=== PATIENT | male | born 1965 | race Caucasian/White ===

== ENCOUNTER 2021-09-23 10:49 | Inpatient (IN) | payer MEDICARE, SELFPAY ==
[2021-09-23] VITALS (27 sets, daily range): BP systolic 120–169; BP diastolic 60–91; PULSE 79–122; RESP 17–30; TEMP 36.1–39.1; O2SAT 88–95; BMI 31.7
--- NOTE | ~2021-09-23 | US_ITS ---
US breast LT limited 09/24/2021 09:47 Indication: Palpable breast lump Procedure: High-resolution Limited ultrasound of the left breast with additional images of the right breast for comparison Comparison: No prior studies for comparison. Findings: There is bilateral subareolar heterogeneous echotexture, consistent with breast buds second monisha to gynecomastia. No suspicious masses to suggest malignancy. Impression: 1: No sonographic evidence for malignancy. Benign findings compatible with gynecomastia. BI-RADS CATEGORY 2 - BENIGN FINDINGS Reviewed, dictated and finalized at location A. LOPE STUFFER Impression: 1: No sonographic evidence for malignancy. Benign findings compatible with gyne comastia. BI-RADS CATEGORY 2 - BENIGN FINDINGS
--- NOTE | ~2021-09-23 | XR_ITS ---
XR chest 1V portable DATE: 09/23/2021 11:48 INDICATION: Low oxygen saturation. Covid-positive. Hypertension. TECHNIQUE: Portable upright AP chest on 09/23/2021 at 1136 hours COMPARISON: None FINDINGS: Normal heart size. Aortic calcification. No hilar or mediastinal enlargement is evident. There is suggestion of some patchy infiltrate in the right upper, mid and lower lung zones and left l ower lobe. No pleural effusion or pulmonary vascular congestion or pneumothorax. Diffuse osteopenia. IMPRESSION: Patchy bilateral pulmonary infiltrates are suggested, right greater than left Reviewed, dictated and finalized at location A. ESSIONAL BUILDER
--- NOTE | 2021-09-23 11:03 | ECG_ITS ---
Measurements Intervals [place] Rate: 117 P: 54 LA: 192 QRS: 7 QRSD: 86 T: 39 QT: 342 QTc: 477 Interpretive Statements SINUS TACHYCARDIA LOW QRS VOLTAGE IN PRECORDIAL LEADS BASELINE ARTIFACT- I, II, III, AVR, AVL, AVF, V1-V6 ABNORMAL ECG Electronically Signed On 09-23-2021 11:42:41 HAM PASSER by Gus Robledo D.O.
[2021-09-23 11:29] LABS: Basophils Percent Auto 0.2 % (0.2-1.2); Hematocrit 37.7 % (42.0-52.0); Immature Granulocyte Absolute 0.05 K/mm3 (0.00-0.031); Immature Granulocyte Percent A 0.9 % (0-0.5); Lymphocytes Absolute Auto 1.05 K/mm3 (0.9-3.2); Lymphocytes Percent Auto 18.5 % (18.3-44.2); Mean Corpuscular HGB Conc 34.5 g/dl (32-36); Mean Corpuscular Hemoglobin 29.1 pg (26-34); Mean Corpuscular Volume 84.3 fl (80-100); Mean Platelet Volume 10.7 fl (7.4-10.4); Monocytes Absolute Auto 0.4 K/mm3 (0.1-0.6); Monocytes Percent Auto 6.9 % (2.6-8.5); Neutrophils Absolute Auto 4.2 K/mm3 (1.3-6.7); Neutrophils Percent Auto 73.5 % (45.5-73.1); Platelet Count Result 260 k/mm3 (150-375); Red Blood Count 4.47 M/mm3 (4.6-6.20); Red Cell Distribution Width 13.5 % (11.5-14.5); White Blood Count 5.7 K/mm3 (4.5-10.0)
--- NOTE | 2021-09-23 11:29 | ED.GENADULT ---
HPI - General Adult General Chief complaint: Upper Respiratory Infection Stated complaint: sob/covid positive Time Seen by Provider: 09/23/21 11:10 Source: patient History of Present Illness HPI narrative: Patient is a 56 y/o male complaining of SOB and cough for about 1 week. He states that his SOB is severe and getting worse during last several days. Exertion, walking makes his SOB worse. He also has fever, sore throat and bodyache and headache. He did home COVID last week and it was positive. He has not been vaccinated against COVID. Related Data Home Medications Medication Instructions Recorded Confirmed buspirone 15 mg tablet 15 mg PO DAILY 04/26/20 09/23/21 citalopram 40 mg tablet 40 mg PO DAILY 04/26/20 09/23/21 cetirizine 10 mg capsule 10 mg PO DAILY 12/17/20 09/23/21 esomeprazole magnesium 20 mg 20 mg PO DAILY 12/17/20 09/23/21 capsule,delayed release multivitamin 1 tablet PO DAILY 12/17/20 09/23/21 trazodone 100 mg tablet 150 mg PO HS tablet 12/17/20 09/23/21 vitamin B complex 1 cap PO DAILY 12/17/20 09/23/21 risperidone 1 mg tablet 1 mg PO DAILY tablet 09/09/21 09/23/21 buspirone 30 mg PO HS 09/23/21 09/23/21 iukgtwj-[id number]-ijko 1 tablet PO DAILY 09/23/21 09/23/21 hydroxyzine pamoate 50 mg PO DAILY 09/23/21 09/23/21 hydroxyzine pamoate 100 mg PO HS 09/23/21 09/23/21 metoprolol succinate 25 mg PO DAILY 09/23/21 09/23/21 risperidone 2 mg PO HS 09/23/21 09/23/21 Allergies Allergy/AdvReac Type Severity Reaction Status Date / Time No Known Allergies Allergy Mild Verified 09/09/21 09:54 Review of Systems Constitutional: Constitutional: Reports chills, Reports fever(s), Reports headache(s) and Denies weakness Eyes: Eyes: Denies blurry vision ENT: Reports headache(s), Denies neck pain and Reports sore throat Cardiovascular: Cardiovascular: Denies chest pain and Reports dyspnea Respiratory: Respiratory: Reports cough and Reports dyspnea Gastrointestinal: Gastrointestinal: Denies abdominal pain, Denies diarrhea, Denies nausea and Denies vomiting Genitourinary: Genitourinary: Denies hematuria and Denies dysuria Musculoskeletal: Musculoskeletal: Denies back pain and Denies neck pain Neurologic: Reports headache(s) and Denies weakness PMFSH Past Medical History Medical History Foot injury Hyperlipidemia Hypertension Mood disorder Type 2 diabetes mellitus Surgical History Surgical History No history of previous surgery Family History Family History (Updated 09/23/21 @ 17:09 by Rukhsana Lovelace RN) Mother Family history of malignant neoplasm of breast in first degree relative Thyroid cancer Osteoarthritis Rheumatoid arthritis Father AIDS Social History Social History (Updated 09/23/21 @ 14:44 by Angie Kaur NP) Social History: The patient has 3 children. He lives with his who is the durable power prosecuting attorney for healthcare. He is considered disabled. Patient continues to smoke 1 pack a cigarettes per day. He continues to drink socially. He denies any marijuana or illicit drugs. Code status full code Smoking packs per day: 1 Smoking cigarettes per day: 20.0 Years smoked: 40 Smoking pack-years: 40.00 Smoking status: Heavy tobacco smoker Tobacco type: cigarettes Alcohol intake: current Drinks per week: 3 Substance use: never Substance use type: does not use Additional occupation/education comments: [employer]. Gender identity (if verbalized by the patient): Male Sexual Orientation (if Verbalized by the Patient): Straight or Heterosexual Spiritual care concerns: No Agree to blood products: Yes Exam Const: General: no acute distress and well developed Orientation/consciousness: oriented to person, oriented to place, oriented to time and patient oriented x3 HENMT: Head: normocephalic Ears: external ears normal General nos
[2021-09-23 11:30] LABS: Alveolar/Arterial O2 Gradient 88.8 mmHg; Base Excess ABG -1.9 mEq/l (+/-2.0); Fractional Inspired Oxygen 25 %; HCO3 ABG 19.9 mEq/l (22.0-26.0); Methemoglobin ABG 0.3 %THb (0-1.5); Oxygen Content ABG 16.6 %vol (16.0-22.0); Oxygen Saturation ABG 92.8 % (95.0-100.0); Oxyhemoglobin 89.7 % THb (90.0-100.0); PCO2 ABG 26.4 mmHg (35.0-45.0); PO2 ABG 58.1 mmHg (80.0-100.0); PO2 FiO2 Ratio Arterial Blood 2.32 %; Total Hemoglobin 13.2 g/dL (12.0-18.0); pH ABG 7.496 (7.350-7.450)
[2021-09-23 11:31] LABS: Device NASAL CANNULA; Liters per Minute 1.3 LPM; Site Drawn LEFT BRACHIAL
[2021-09-23 11:38] LABS: INR 0.9; Prothrombin Time 11.9 Seconds (11.1-14.7)
[2021-09-23 11:39] LABS: Partial Thromboplastin Time 30.6 SECONDS (22.3-36.8)
[2021-09-23 11:43] LABS: Lactic Acid Reflex 1.9 mmol/L (0.7-2.1)
[2021-09-23 11:57] LABS: Alanine Aminotransferase 42 U/L (4-50); Albumin Level 4.4 g/dL (3.5-5.1); Alkaline Phosphatase 158 U/L (38-126); Anion Gap 16 mmol/L (8-16); Aspartate Amino Transferase 77 U/L (17-59); Bilirubin,Total 0.4 mg/dL (0.2-1.3); Blood Urea Nitrogen 21 mg/dL (9-20); Calcium 9.6 mg/dL (8.4-10.2); Carbon Dioxide 20 mmol/L (22-30); Chloride 100 mmol/L (98-107); Estimated CRCL calculation 81 ml/min; Estimated Glomerular Filt Rate > 60; Glucose 191 mg/dL (65-110); Potassium 3.9 mmol/L (3.4-5.0); Sodium 136 mmol/L (137-145)
[2021-09-23 11:59] LABS: CRP 19.9 mg/dL (<1.0)
--- NOTE | 2021-09-23 12:47 | PC.NURSE ---
1247-CALLED TO PHARMACY REGARDING STATUS OF MEDICATION. PHARMACY STATES STILL MIXING AND WILL HAVE AVAILABLE SHORTLY.
[2021-09-23] MEDS: REMDESIVIR 200 MG/NS 250 ML 200 MG/250 ML BAG 250 MG IVPB (13:08)
--- NOTE | 2021-09-23 13:50 | PM.IMHP ---
H&P: HPI History of Present Illness Date/Time: 09/23/21 13:50 this is an 56-year-old male patient who is unvaccinated for COVID-19. The patient has been complaining about having a occasional cough for about 1 week. The patient stated that his shortness breath is more superior and has been getting worse during the last several days. Exertion makes him feel more short of breath. The patient has had fever, sore throat, body aches, and headache. He tested positive for COVID approximately 1 week ago. His is also sick as well and she has been vaccinated. His H&H is 13.0 in 37.7. His blood sugars 191 today last A1c on 03/28/2021 was 7.1. AST 77, alkaline phosphatase 158, and C reactive protein 19.9. Chest x-ray was read as patchy bilateral pulmonary infiltrates are suggested right greater than left. The patient was given IV Tylenol, Decadron, and remdesivir. The patient is being admitted to inpatient services on the date of service 09/23/2021. Chief Complaint: Shortness of breath Review of Systems Review of Systems: All systems reviewed & are unremarkable except as noted in HPI and below Constitutional: Constitutional: Reports as per HPI and Reports no additional constitutional complaints Eyes: Eyes: Reports as per HPI and Reports no additional eye complaints ENT: Reports system reviewed and no additional complaints, except as documented and Reports Normal hearing present Cardiovascular: Cardiovascular: Reports no additional cardiovascular complaints Respiratory: Respiratory: Reports no additional respiratory complaints and Reports no additional respiratory complaints Gastrointestinal: Gastrointestinal: Reports as per HPI and Reports no additional gastrointestinal complaints Musculoskeletal: Musculoskeletal: Reports no additional musculoskeletal complaints Integumentary/Breasts: Skin/Breast: Reports system reviewed and no additional complaints, except as docu and Reports as per HPI Neurologic: Reports system reviewed and no additional complaints, except as documented, Reports as per HPI and Reports Normal hearing present Psychiatric: Psychiatric: Reports no additional psychiatric complaints and Reports as per HPI Endocrine: Endocrine: Reports no additional endocrine complaints Hematologic/Lymphatic: Hematologic/Lymphatic: Reports no additional hematologic/lymphatic complaints Allergic/Immunologic: Allergic/Immunologic: Reports no additional allergic/immunologic complaints PMFSH Past Medical History Medical History Foot injury Hyperlipidemia Hypertension Mood disorder Type 2 diabetes mellitus Surgical History Surgical History No history of previous surgery Family History Family History Mother Family history of malignant neoplasm of breast in first degree relative Father AIDS Social History Social History (Updated 09/23/21 @ 14:44 by Angie Kaur NP) Social History: The patient has 3 children. He lives with his who is the durable power erisa attorney for healthcare. He is considered disabled. Patient continues to smoke 1 pack a cigarettes per day. He continues to drink socially. He denies any marijuana or illicit drugs. Code status full code Smoking packs per day: 1 Smoking cigarettes per day: 20.0 Smoking status: Current every day smoker Alcohol intake: current Substance use: never Substance use type: does not use Additional occupation/education comments: [employer]. Gender identity (if verbalized by the patient): Male Sexual Orientation (if Verbalized by the Patient): Straight or Heterosexual Spiritual care concerns: No Agree to blood products: Yes Meds Home Medications and Allergies Home Medications Medication Instructions Recorded Confirmed Type buspirone 15 mg tablet 15 mg PO BID 04/26/20 09/09/21
--- NOTE | 2021-09-23 15:35 | PC.NURSE ---
This patient, Shai Hernandez, was admitted to [facility] Surg Room 328-01. Patient/family oriented to hospital policies and general routines including ID bracelet, bed and alarms, visiting hours, pain management, procedures, bathroom and other care routines, personal items, smoking policy, room service/diet, and visiting hours.Report received from Roe LAINEZ. Information on how to activate the Rapid Response Team has been discussed. Patient/Family are encouraged to report perceived risks to care and to ask questions if they do not understand what they are told or what they should do.
[2021-09-23 22:56] LABS: Glucose Point of Care 272 mg/dl (65-105)
[2021-09-24] VITALS (10 sets, daily range): BP systolic 127–144; BP diastolic 62–78; PULSE 69–85; RESP 14–20; TEMP 36.1–37.1; O2SAT 90–95; BMI 31.7
[2021-09-24 05:38] LABS: Glucose Point of Care 250 mg/dl (65-105)
[2021-09-24 07:31] LABS: Basophils Percent Auto 0.2 % (0.2-1.2); Hematocrit 38.3 % (42.0-52.0); Hemoglobin 12.7 g/dL (14.0-18.0); Immature Granulocyte Absolute 0.05 K/mm3 (0.00-0.031); Immature Granulocyte Percent A 1.1 % (0-0.5); Lymphocytes Absolute Auto 1.37 K/mm3 (0.9-3.2); Lymphocytes Percent Auto 31.5 % (18.3-44.2); Mean Corpuscular HGB Conc 33.2 g/dl (32-36); Mean Corpuscular Hemoglobin 28.4 pg (26-34); Mean Corpuscular Volume 85.7 fl (80-100); Mean Platelet Volume 10.8 fl (7.4-10.4); Monocytes Absolute Auto 0.4 K/mm3 (0.1-0.6); Monocytes Percent Auto 8.3 % (2.6-8.5); Neutrophils Absolute Auto 2.6 K/mm3 (1.3-6.7); Neutrophils Percent Auto 58.9 % (45.5-73.1); Platelet Count Result 304 k/mm3 (150-375); Red Blood Count 4.47 M/mm3 (4.6-6.20); Red Cell Distribution Width 13.6 % (11.5-14.5); White Blood Count 4.4 K/mm3 (4.5-10.0)
[2021-09-24 07:41] LABS: Prothrombin Time 13.1 Seconds (11.1-14.7)
[2021-09-24 07:55] LABS: Alanine Aminotransferase 48 U/L (4-50); Albumin Level 4.4 g/dL (3.5-5.1); Alkaline Phosphatase 136 U/L (38-126); Anion Gap 11 mmol/L (8-16); Aspartate Amino Transferase 66 U/L (17-59); Bilirubin,Total 0.4 mg/dL (0.2-1.3); Blood Urea Nitrogen 23 mg/dL (9-20); Carbon Dioxide 25 mmol/L (22-30); Chloride 103 mmol/L (98-107); Estimated CRCL calculation 96 ml/min; Estimated Glomerular Filt Rate > 60; Glucose 180 mg/dL (65-110); Lactate Dehydrogenase 1101 U/L (313-618); Magnesium 1.5 mg/dL (1.6-2.3); Potassium 4.4 mmol/L (3.4-5.0); Sodium 139 mmol/L (137-145)
[2021-09-24 08:12] LABS: CRP 18.6 mg/dL (<1.0); Hemoglobin A1C 7.5 % (<5.7)
[2021-09-24] MEDS: NICOTINE (*PBKC) 21 MG PATCH 1 PATCH TRANSDERM (08:36)
[2021-09-24] MEDS: ENOXAPARIN 40 MG/0.4 ML SYRINGE SUB-Q (08:37)
[2021-09-24] MEDS: REMDESIVIR 100 MG/NS 250 ML 100 MG/250 ML BAG 250 MG IVPB (10:21)
[2021-09-24 11:02] LABS: Glucose Point of Care 171 mg/dl (65-105)
[2021-09-24] MEDS: GLIMEPIRIDE 1 MG TABLET PO (12:12)
[2021-09-24] MEDS: busPIRone HCL 5 MG TABLET 15 MG PO (12:12)
[2021-09-24] MEDS: METOPROLOL SUCCINATE EXT REL 50 MG TABCR PO (12:12)
[2021-09-24] MEDS: CITALOPRAM HYDROBROMIDE 20 MG TABLET 40 MG PO (12:12)
[2021-09-24] MEDS: LORATADINE 10 MG TABLET PO (12:12)
[2021-09-24] MEDS: hydroCHLOROthiazide 25 MG TABLET PO (12:13)
[2021-09-24] MEDS: METOPROLOL SUCCINATE EXT REL 25 MG TABCR PO (12:13)
[2021-09-24] MEDS: hydrOXYzine pamoate 25 MG CAPSULE 50 MG PO (12:13)
[2021-09-24] MEDS: PANTOPRAZOLE 40 MG TABLET PO (12:13)
[2021-09-24] MEDS: VITAMIN B COMPLEX CAPSULE 1 CAP PO (12:13)
[2021-09-24] MEDS: LOSARTAN POTASSIUM 100 MG TABLET PO (12:13)
[2021-09-24] MEDS: ATORVASTATIN 40 MG TABLET PO (12:13)
[2021-09-24] MEDS: risperiDONE 1 MG TABLET PO (12:14)
[2021-09-24] MEDS: MULTIVITAMINS THERAPEUTIC TAB (*BKC) 1 TABLET PO (12:14)
[2021-09-24] MEDS: INSULIN ASPART (*BKC) 100 UNITS/ML SUB-Q ×2 (12:59→18:04)
[2021-09-24 13:13] LABS: Glucose Point of Care 248 mg/dl (65-105)
[2021-09-24 18:28] LABS: Glucose Point of Care 234 mg/dl (65-105)
--- NOTE | 2021-09-24 18:47 | PM.IMPN ---
Progress Note: A&P Assessment and Plan (1) Pneumonia due to COVID-19 virus: Code(s): U07.1 - COVID-19; J12.82 - Pneumonia due to coronavirus disease 2019 Status: Acute Assessment and Plan: Continue with albuterol inhaler p.r.n. continue with remdesivir and Decadron daily continue subcu Lovenox. Continue with Robitussin cough medicine. Home oxygen evaluation to more. (2) Primary hypertension: Code(s): I10 - Essential (primary) hypertension Status: Acute Assessment and Plan: P.r.n. hydralazine and continue with his home medications of losartan, hydrochlorothiazide and metoprolol. (3) Type 2 diabetes mellitus: Qualifiers: Diabetes mellitus extermination supervisor insulin use: without senior care use Diabetes mellitus complication status: without complication Qualified Code(s): E11.9 - Type 2 diabetes mellitus without complications Code(s): E11.9 - Type 2 diabetes mellitus without complications Status: Acute Assessment and Plan: Continue Accu-Cheks AC and HS with sliding scale. Check A1c. (4) Hyperlipidemia: Qualifiers: Hyperlipidemia type: mixed hyperlipidemia Qualified Code(s): E78.2 - Mixed hyperlipidemia Code(s): E78.5 - Hyperlipidemia, unspecified Status: Acute Assessment and Plan: Monitor liver function tests. Patient's liver enzymes are elevated so I will hold his atorvastatin at this time. The elevated liver enzymes may be from his COVID. (5) Mood disorder: Code(s): F39 - Unspecified mood [affective] disorder Status: Acute Assessment and Plan: Continue with patient's BuSpar and trazodone Subjective Date/time seen: 09/24/21 18:47 Narrative: this is an 56-year-old male unvaccinated patient admitted with cough, worsening shortness breath, fever, sore throat, body aches, and headache. He tested positive for COVID approximately 1 week ago. Chest x-ray was read as patchy bilateral pulmonary infiltrates are suggested right greater than left. The patient was given IV Tylenol, Decadron, and remdesivir. S: Patient was seen and examined at the bedside. He had a good dinner. He denies any complaints. Review of Systems Review of Systems: All systems reviewed & are unremarkable except as noted in HPI and below Constitutional: Constitutional: Reports as per HPI and Reports no additional constitutional complaints Eyes: Eyes: Reports as per HPI and Reports no additional eye complaints ENT: Reports system reviewed and no additional complaints, except as documented and Reports Normal hearing present Cardiovascular: Cardiovascular: Reports no additional cardiovascular complaints Respiratory: Respiratory: Reports no additional respiratory complaints and Reports no additional respiratory complaints Gastrointestinal: Gastrointestinal: Reports as per HPI and Reports no additional gastrointestinal complaints Musculoskeletal: Musculoskeletal: Reports no additional musculoskeletal complaints Integumentary/Breasts: Skin/Breast: Reports system reviewed and no additional complaints, except as docu and Reports as per HPI Neurologic: Reports system reviewed and no additional complaints, except as documented, Reports as per HPI and Reports Normal hearing present Psychiatric: Psychiatric: Reports no additional psychiatric complaints and Reports as per HPI Endocrine: Endocrine: Reports no additional endocrine complaints Hematologic/Lymphatic: Hematologic/Lymphatic: Reports no additional hematologic/lymphatic complaints Allergic/Immunologic: Allergic/Immunologic: Reports no additional allergic/immunologic complaints Exam Const: General: cooperative, comfortable, no acute distress, well developed, alert, awake and Physically active Nutritional Appearance: overweight Orientation/consciousness: oriented to person, oriented to place, oriented to time and patient oriented x3 Limitations: no limitations HENMT: Head: normal to inspection, N
[2021-09-24] MEDS: hydrOXYzine pamoate 25 MG CAPSULE 100 MG PO (21:24)
[2021-09-24] MEDS: busPIRone HCL 10 MG TABLET 30 MG PO (21:24)
[2021-09-24] MEDS: risperiDONE 1 MG TABLET 2 MG PO (21:25)
[2021-09-24] MEDS: traZODone HCL 50 MG TABLET 150 MG PO (21:25)
[2021-09-24] MEDS: INSULIN GLARGINE (*BKC) 100 UNITS/ML 15 UNITS SUB-Q (21:30)
[2021-09-24 22:31] LABS: Glucose Point of Care 280 mg/dl (65-105)
[2021-09-25] VITALS (7 sets, daily range): BP systolic 102–142; BP diastolic 43–82; PULSE 62–84; RESP 15–22; TEMP 36–37.9; O2SAT 89–93
[2021-09-25 07:15] LABS: Hematocrit 38.1 % (42.0-52.0); Hemoglobin 12.6 g/dL (14.0-18.0); Mean Corpuscular HGB Conc 33.1 g/dl (32-36); Mean Corpuscular Hemoglobin 28.6 pg (26-34); Mean Corpuscular Volume 86.4 fl (80-100); Mean Platelet Volume 10.6 fl (7.4-10.4); Platelet Count Result 337 k/mm3 (150-375); Red Blood Count 4.41 M/mm3 (4.6-6.20); Red Cell Distribution Width 13.6 % (11.5-14.5); White Blood Count 7.6 K/mm3 (4.5-10.0)
[2021-09-25 07:28] LABS: Prothrombin Time 12.8 Seconds (11.1-14.7)
[2021-09-25 07:31] LABS: Alanine Aminotransferase 61 U/L (4-50); Alkaline Phosphatase 123 U/L (38-126); Anion Gap 12 mmol/L (8-16); Aspartate Amino Transferase 90 U/L (17-59); Bilirubin,Total 0.4 mg/dL (0.2-1.3); Blood Urea Nitrogen 30 mg/dL (9-20); Calcium 9.6 mg/dL (8.4-10.2); Carbon Dioxide 24 mmol/L (22-30); Chloride 103 mmol/L (98-107); Estimated CRCL calculation 87 ml/min; Estimated Glomerular Filt Rate > 60; Glucose 155 mg/dL (65-110); Potassium 4.2 mmol/L (3.4-5.0); Sodium 139 mmol/L (137-145)
[2021-09-25] MEDS: ENOXAPARIN 40 MG/0.4 ML SYRINGE SUB-Q (10:10)
[2021-09-25] MEDS: busPIRone HCL 5 MG TABLET 15 MG PO (10:10)
[2021-09-25] MEDS: VITAMIN B COMPLEX CAPSULE 1 CAP PO (10:11)
[2021-09-25] MEDS: PANTOPRAZOLE 40 MG TABLET PO (10:11)
[2021-09-25] MEDS: ATORVASTATIN 40 MG TABLET PO (10:11)
[2021-09-25] MEDS: risperiDONE 1 MG TABLET PO (10:11)
[2021-09-25] MEDS: METOPROLOL SUCCINATE EXT REL 25 MG TABCR PO (10:11)
[2021-09-25] MEDS: MULTIVITAMINS THERAPEUTIC TAB (*BKC) 1 TABLET PO (10:11)
[2021-09-25] MEDS: hydrOXYzine pamoate 25 MG CAPSULE 50 MG PO (10:11)
[2021-09-25] MEDS: METOPROLOL SUCCINATE EXT REL 50 MG TABCR PO (10:11)
[2021-09-25] MEDS: GLIMEPIRIDE 1 MG TABLET PO (10:12)
[2021-09-25] MEDS: CITALOPRAM HYDROBROMIDE 20 MG TABLET 40 MG PO (10:12)
[2021-09-25] MEDS: LORATADINE 10 MG TABLET PO (10:12)
[2021-09-25] MEDS: LOSARTAN POTASSIUM 100 MG TABLET PO (10:12)
[2021-09-25] MEDS: hydroCHLOROthiazide 25 MG TABLET PO (10:12)
[2021-09-25] MEDS: NICOTINE (*PBKC) 21 MG PATCH 1 PATCH TRANSDERM (10:13)
[2021-09-25] MEDS: REMDESIVIR 100 MG/NS 250 ML 100 MG/250 ML BAG IVPB (10:13)
[2021-09-25 12:23] LABS: Glucose Point of Care 220 mg/dl (65-105)
[2021-09-25] MEDS: INSULIN ASPART (*BKC) 100 UNITS/ML SUB-Q (13:00)
--- NOTE | 2021-09-25 13:25 | PM.IMPN ---
Progress Note: A&P Assessment and Plan (1) Pneumonia due to COVID-19 virus: Code(s): U07.1 - COVID-19; J12.82 - Pneumonia due to coronavirus disease 2019 Status: Acute Assessment and Plan: Continue with albuterol inhaler p.r.n. continue management for COVID-19 pneumonia with remdesivir and Decadron daily continue subcu Lovenox. Continue with Robitussin cough medicine. Home oxygen evaluation today. Currently patient requiring only 1 L oxygen via nasal cannula. Clinically he is stable. (2) Primary hypertension: Code(s): I10 - Essential (primary) hypertension Status: Acute Assessment and Plan: Continue with his home medications of losartan, hydrochlorothiazide and metoprolol. Hold for systolic blood pressure less than 130 in the setting of acute illness. (3) Type 2 diabetes mellitus: Qualifiers: Diabetes mellitus jail insulin use: without jail use Diabetes mellitus complication status: without complication Qualified Code(s): E11.9 - Type 2 diabetes mellitus without complications Code(s): E11.9 - Type 2 diabetes mellitus without complications Status: Acute Assessment and Plan: Continue Accu-Cheks AC and HS with sliding scale. A1c is 7.5, close to goal. Fasting blood glucose was 155. Accu-Chek was 220. (4) Hyperlipidemia: Qualifiers: Hyperlipidemia type: mixed hyperlipidemia Qualified Code(s): E78.2 - Mixed hyperlipidemia Code(s): E78.5 - Hyperlipidemia, unspecified Status: Acute Assessment and Plan: Monitor liver function tests. Patient's liver enzymes are elevated on admission. This is a mild elevation of LFTs with normal total bilirubin at 0.4, AST 90, ALT 61, and normal alkaline phosphatase at 123. (5) Mood disorder: Code(s): F39 - Unspecified mood [affective] disorder Status: Acute Assessment and Plan: Continue with patient's BuSpar and trazodone. Subjective Date/time seen: 09/25/21 13:25 S: Patient was seen examined at the bedside. Denies any active complaints. He is breathing comfortably oxygen on 1 L nasal cannula. Review of Systems Review of Systems: All systems reviewed & are unremarkable except as noted in HPI and below Constitutional: Constitutional: Reports as per HPI and Reports no additional constitutional complaints Eyes: Eyes: Reports as per HPI and Reports no additional eye complaints ENT: Reports system reviewed and no additional complaints, except as documented and Reports Normal hearing present Cardiovascular: Cardiovascular: Reports no additional cardiovascular complaints Respiratory: Respiratory: Reports no additional respiratory complaints and Reports no additional respiratory complaints Gastrointestinal: Gastrointestinal: Reports as per HPI and Reports no additional gastrointestinal complaints Musculoskeletal: Musculoskeletal: Reports no additional musculoskeletal complaints Integumentary/Breasts: Skin/Breast: Reports system reviewed and no additional complaints, except as docu and Reports as per HPI Neurologic: Reports system reviewed and no additional complaints, except as documented, Reports as per HPI and Reports Normal hearing present Psychiatric: Psychiatric: Reports no additional psychiatric complaints and Reports as per HPI Endocrine: Endocrine: Reports no additional endocrine complaints Hematologic/Lymphatic: Hematologic/Lymphatic: Reports no additional hematologic/lymphatic complaints Allergic/Immunologic: Allergic/Immunologic: Reports no additional allergic/immunologic complaints Exam Const: General: cooperative, comfortable, no acute distress, well developed, alert, awake and Physically active Nutritional Appearance: overweight Orientation/consciousness: oriented to person, oriented to place, oriented to time and patient oriented x3 Limitations: no limitations HENMT: Head: normal to inspection, No palpable skull fracture present, normocephali
[2021-09-25 17:04] LABS: Glucose Point of Care 125 mg/dl (65-105)
[2021-09-25] MEDS: traZODone HCL 50 MG TABLET 150 MG PO (21:46)
[2021-09-25] MEDS: risperiDONE 1 MG TABLET 2 MG PO (21:46)
[2021-09-25] MEDS: hydrOXYzine pamoate 25 MG CAPSULE 100 MG PO (21:47)
[2021-09-25] MEDS: busPIRone HCL 10 MG TABLET 30 MG PO (21:47)
[2021-09-25 22:01] LABS: Glucose Point of Care 144 mg/dl (65-105)
[2021-09-26] VITALS (14 sets, daily range): BP systolic 110–138; BP diastolic 52–64; PULSE 72–109; RESP 16–20; TEMP 36.4–38.6; O2SAT 87–91
[2021-09-26] MEDS: ACETAMINOPHEN 500 MG TABLET 1000 MG PO ×2 (00:05)
[2021-09-26 07:35] LABS: Prothrombin Time 12.8 Seconds (11.1-14.7)
[2021-09-26 07:45] LABS: Alanine Aminotransferase 69 U/L (4-50); Estimated CRCL calculation 79 ml/min; Estimated Glomerular Filt Rate > 60
[2021-09-26] MEDS: hydrOXYzine pamoate 25 MG CAPSULE 50 MG PO (10:34)
[2021-09-26] MEDS: LORATADINE 10 MG TABLET PO (10:34)
[2021-09-26] MEDS: busPIRone HCL 5 MG TABLET 15 MG PO (10:34)
[2021-09-26] MEDS: ATORVASTATIN 40 MG TABLET PO (10:34)
[2021-09-26] MEDS: PANTOPRAZOLE 40 MG TABLET PO (10:35)
[2021-09-26] MEDS: VITAMIN B COMPLEX CAPSULE 1 CAP PO (10:35)
[2021-09-26] MEDS: LOSARTAN POTASSIUM 100 MG TABLET PO (10:35)
[2021-09-26] MEDS: risperiDONE 1 MG TABLET PO (10:35)
[2021-09-26] MEDS: hydroCHLOROthiazide 25 MG TABLET PO (10:35)
[2021-09-26] MEDS: MULTIVITAMINS THERAPEUTIC TAB (*BKC) 1 TABLET PO (10:35)
[2021-09-26] MEDS: GLIMEPIRIDE 1 MG TABLET PO (10:35)
[2021-09-26] MEDS: METOPROLOL SUCCINATE EXT REL 25 MG TABCR PO (10:36)
[2021-09-26] MEDS: CITALOPRAM HYDROBROMIDE 20 MG TABLET 40 MG PO (10:37)
[2021-09-26] MEDS: NICOTINE (*PBKC) 21 MG PATCH 1 PATCH TRANSDERM (10:38)
[2021-09-26] MEDS: METOPROLOL SUCCINATE EXT REL 50 MG TABCR PO (10:38)
--- NOTE | 2021-09-26 10:39 | HOMEO2EVAL ---
Evaluation was performed at [facility] Home Oxygen Evaluation RC: Home Oxygen (O2) Evaluation Start: 09/25/21 12:33 Freq: ONCE Status: Active Protocol: RPE Activity Type Activity Date Activity User E-Sign Co-Sign Detail Recorded Client Recorded Date Recorded By Document 09/26/21 10:10 DJO [email or web address] 09/26/21 10:39 DJO Document 09/26/21 10:15 [email or web address] [email or web address] 09/26/21 10:39 DJO Document 09/26/21 10:20 [email or web address] [email or web address] 09/26/21 10:39 DJO Document 09/26/21 10:25 [email or web address] [email or web address] 09/26/21 10:39 DJO Document 09/26/21 10:35 [email or web address] [email or web address] 09/26/21 10:39 DJO 09/26/21 09/26/21 09/26/21 10:10 10:15 10:20 Home O2 Evaluation Test Phase Resting Resting Exercise Oxygen Delivery Room Air Nasal Cannula Nasal Cannula Oxygen Flow Rate (L/min) 1 1 Pulse Oximetry (90-100 %) 87 L 90 87 L Pulse Rate (60-100 beats/min) 90 89 105 H Activity Tolerance Rating of Perceived Dyspnea (PD) Treatment Charges O2 Evaluation - Inpatient 09/26/21 09/26/21 10:25 10:35 Home O2 Evaluation Test Phase Exercise Resting Oxygen Delivery Nasal Cannula Nasal Cannula Oxygen Flow Rate (L/min) 2 1 Pulse Oximetry (90-100 %) 91 90 Pulse Rate (60-100 beats/min) 109 H 88 Activity Tolerance Good Rating of Perceived Dyspnea (PD) +2 Mild, Some Difficulty, Noticeable to the Observer Treatment Charges
[2021-09-26] MEDS: ENOXAPARIN 40 MG/0.4 ML SYRINGE SUB-Q (10:40)
[2021-09-26] MEDS: REMDESIVIR 100 MG/NS 250 ML 100 MG/250 ML BAG 250 MG IVPB (10:41)
--- NOTE | 2021-09-26 10:50 | PCRCNOTE ---
HOME O2 EVAL COMPLETE, 1 LITER AT REST AND 2 LITERS WITH ACTIVITY. SET UP WITH [facility]. PHONE NUMBER [phone]. TANK TO BE DELIVERED TODAY TO PT'S ROOM FOR DISCHARGE.
[2021-09-26 10:51] LABS: Glucose Point of Care 196 mg/dl (65-105)
[2021-09-26 12:42] LABS: Glucose Point of Care 150 mg/dl (65-105)
--- NOTE | 2021-09-26 13:18 | PM.DS ---
DS: Admitting Diagnosis Discharge Date 09/26/2021 Admitting Diagnosis (1) Pneumonia due to COVID-19 virus: (2) Primary hypertension: (3) Type 2 diabetes mellitus: (4) Hyperlipidemia: (5) Mood disorder: DS: Discharge Diagnosis Discharge Diagnosis (1) Pneumonia due to COVID-19 virus: Code(s): U07.1 - COVID-19; J12.82 - Pneumonia due to coronavirus disease 2019 Status: Acute Assessment and Plan: Continue with albuterol inhaler p.r.n. continue management for COVID-19 pneumonia with remdesivir and Decadron daily continue subcu Lovenox. Continue with Robitussin cough medicine. Home oxygen evaluation today. Currently patient requiring only 1 L oxygen via nasal cannula. Clinically he is stable. (2) Primary hypertension: Code(s): I10 - Essential (primary) hypertension Status: Acute Assessment and Plan: Continue with his home medications of losartan, hydrochlorothiazide and metoprolol. Hold for systolic blood pressure less than 130 in the setting of acute illness. (3) Type 2 diabetes mellitus: Qualifiers: Diabetes mellitus complication status: without complication Diabetes mellitus chcf insulin use: without chcf use Qualified Code(s): E11.9 - Type 2 diabetes mellitus without complications Code(s): E11.9 - Type 2 diabetes mellitus without complications Status: Acute Assessment and Plan: Continue Accu-Cheks AC and HS with sliding scale. A1c is 7.5, close to goal. Fasting blood glucose was 155. Accu-Chek was 220. (4) Hyperlipidemia: Qualifiers: Hyperlipidemia type: mixed hyperlipidemia Qualified Code(s): E78.2 - Mixed hyperlipidemia Code(s): E78.5 - Hyperlipidemia, unspecified Status: Acute Assessment and Plan: Monitor liver function tests. Patient's liver enzymes are elevated on admission. This is a mild elevation of LFTs with normal total bilirubin at 0.4, AST 90, ALT 61, and normal alkaline phosphatase at 123. (5) Mood disorder: Code(s): F39 - Unspecified mood [affective] disorder Status: Acute Assessment and Plan: Continue with patient's BuSpar and trazodone. DS: Summary Hospital Course Reason for hospitalization: Shortness of breath. Hospital Course: Please refer to admission H& P. Briefly,this is an 56-year-old male patient who is unvaccinated for COVID-19. The patient has been complaining about having a occasional cough for about 1 week. The patient stated that his shortness breath is more superior and has been getting worse during the last several days. Exertion makes him feel more short of breath. The patient has had fever, sore throat, body aches, and headache. He tested positive for COVID approximately 1 week ago. His is also sick as well and she has been vaccinated. His H&H is 13.0 in 37.7. His blood sugars 191 today last A1c on 03/28/2021 was 7.1. AST 77, alkaline phosphatase 158, and C reactive protein 19.9. Chest x-ray was read as patchy bilateral pulmonary infiltrates are suggested right greater than left. The patient was given IV Tylenol, Decadron, and remdesivir. The patient is being admitted to inpatient services on the date of service 09/23/2021. patient completed a 3-day course of remdesivir. He is completely asymptomatic at rest. He requires 1 L of oxygen during rest and 2 L of oxygen with activity. patient will be discharged continue a 5- day course of Po dexamethasone. patient will follow-up with his primary care provider with a video visit within 7 days of discharge. Time Spent with Patient Time attestation: Total time spent providing and/or coordinating discharge services: 35 min Exam Const: General: cooperative, comfortable, no acute distress, well developed, alert, awake and Physically active Nutritional Appearance: overweight Orientation/consciousness: oriented to person, oriented to place, oriented to time and patient oriented x3 Limitations: no limitat
== END 2021-09-26 17:13 | disposition home or self-care (01) | DRG 177 ==
LOC: ANHED 11:51 → ANH3MEDSUR 15:48
PROVIDERS: Emergency Medicine; Nurse Practitioner; Admitting Provider Internal Medicine; Emergency Provider Emergency Medicine; PCP Family Medicine; Visit Provider Internal Medicine
DX: U07.1 COVID-19 (principal); J12.82 Pneumonia due to coronavirus disease 2019; I10 Essential (primary) hypertension; E78.2 Mixed hyperlipidemia; E11.9 Type 2 diabetes mellitus without complications; F39 Unspecified mood [affective] disorder; F17.210 Nicotine dependence, cigarettes, uncomplicated; E66.3 Overweight; Z68.31 Body mass index [BMI] 31.0-31.9, adult
CPT/HCPCS: 36415; 36600; 71045; 76642; 80053; 82375; 82565; 82728; 82805; 82948; 83036; 83050; 83605; 83615; 83735; 84443; 84460; 85025; 85027; 85610; 85730; 86140; 87040; 93005; 94618; 96365; 96375; 99285; A9270; J0131; J1100; J1650; J1815

== ENCOUNTER 2023-07-05 16:45 | Inpatient (IN) | payer MEDICARE, MEDICAID, SELFPAY ==
[2023-07-05] VITALS (13 sets, daily range): BP systolic 113–159; BP diastolic 66–80; PULSE 76–97; RESP 14–26; TEMP 36.5–36.9; O2SAT 90–99; BMI 28.7
--- NOTE | ~2023-07-05 | CT_ITS ---
EXAMINATION: CT brain wo con DATE: 07/05/2023 17:50 INDICATION: possible new onset seizure, head trauma . TECHNIQUE: Computed tomography (CT) of the head was performed without intravenous contrast. The mA wa s adjusted according to patient size. Iterative reconstruction technique was employed. The dose-lengt h product was 605.33 mGy-cm. COMPARISON: None. FINDINGS: No acute intracranial hemorrhage or extra-axial fluid collection. No hydrocephalus, mass, or herniation. No acute ischemic infarct. Unremarkable dural venous sinus attenuation. No acute osseous abnormality. Left posterior scalp hematoma/contusion, near the vertex. The aerated spaces are clear. Mild atrophy and chronic white matter change. Atherosclerotic intracranial calcification. IMPRESSION: No acute intracranial process. Reviewed, dictated and finalized at location K.
--- NOTE | ~2023-07-05 | CT_ITS ---
EXAMINATION: CT cervical spine wo con DATE: 07/05/2023 17:51 INDICATION: fall, head trauma TECHNIQUE: Computed tomography (CT) of the cervical spine was performed without intravenous contrast. Automated exposure control and iterative reconstruction technique were employed. The dose-length pro duct was 427.44 mGy-cm. COMPARISON: None. FINDINGS: Vertebral Body Alignment: Intact. Craniocervical and atlantoaxial alignment: Moderate degenerative change. Alignment intact. Osseous structures/fracture: No evidence of a lytic or blastic process in the visualized spine. No e vidence of acute fracture. Cervical soft tissues: The paraspinal soft tissues planes are maintained. Paraseptal emphysematous ch latoya. Degenerative changes: Multilevel mild degenerative disc disease. Multilevel mild and moderate facet a rthropathy. No severe central canal or neural foraminal narrowing. IMPRESSION: No acute fracture or traumatic malalignment in the cervical spine. Reviewed, dictated and finalized at location K.
--- NOTE | ~2023-07-05 | CT_ITS ---
EXAMINATION: CTA chest PE protocol DATE: 07/05/2023 18:26 INDICATION: elevated d dimer, chest pain TECHNIQUE: Computed tomography angiography (CTA) of the chest was performed with 100 mL Omnipaque-350 intravenous contrast timed to evaluate the pulmonary arteries. Coronal maximum intensity projection 3D-reconstructions were created by the technologist. The dose-length product (DLP) was 1168.54 mGy-cm . Automated exposure control and iterative reconstruction technique were employed. COMPARISON: None. FINDINGS: Lung parenchyma and airways: Mild paraseptal emphysematous change. Pleura: Unremarkable. Thoracic inlet, axillae and chest wall: Unremarkable. Thoracic aorta: Normal. Mediastinum: Normal. Heart and pericardium: Normal. Coronary artery calcifications: Absent. Upper abdomen: Indeterminate density 1.7 cm left adrenal mass.. Bones: No acute osseous finding. Pulmonary arteries: Study quality: Adequate. No pulmonary emboli detected. IMPRESSION: No CT evidence of acute pulmonary embolus. No acute intrathoracic process detected. Indeterminate density 1.7 cm left adrenal mass, likely benign, consider follow-up adrenal CT in 12 mo nths unless there is a prior history of cancer, in which case recommend outpatient adrenal CT current ly. Reviewed, dictated and finalized at location K. IMPRESSION: No CT evidence of acute pulmonary embolus. No acute intrathoracic process detected. Indeterminate density 1.7 cm left adrenal mass, likely benign, consider follow- up adrenal CT in 12 months unless there is a prior history of cancer, in which case recommend outpatient adrenal CT currently.
--- NOTE | 2023-07-05 16:56 | ECG_ITS ---
Measurements Intervals [place] Rate: 83 P: 58 MN: 171 QRS: 28 QRSD: 89 T: 50 QT: 411 QTc: 486 Interpretive Statements SINUS RHYTHM NORMAL ECG COMPARED TO ECG 09/23/2021 11:12:41 SINUS RHYTHM NOW PRESENT Electronically Signed On 07-06-2023 8:48:39 CDT by Marques Courtney M.D.
--- NOTE | 2023-07-05 17:14 | ED.GENADULT ---
HPI - General Adult General Chief complaint: Seizure Stated complaint: seizure x 2 Time Seen by Provider: 07/05/23 17:01 Source: patient Mode of arrival: ambulatory Limitations: no limitations History of Present Illness HPI narrative: This is a 58-year-old male with PMH of T2DM, HLD, mood disorder, HTN who presents to the ED via EMS for chief complaint of possible seizures. His is here and supplementing history. She witnessed both events. states that patient came in from the garage stating that the side of his chest was hurting and when he stepped up onto the stoop his eyes rolled back and his whole body stiffened up and he fell to the ground like a log. She reports he hit his head during this event and suffered a laceration. She reports he was able to get up and walk around following the event. Reports about 45 minutes later he started walking again and she notes that he stiffened up again and controlled himself down to the chair. She also mentions that he reported to some dizziness before the episode. No known seizure history. Per EMS patient was not postictal on arrival. Per EMS he was A&O x4 when they arrived. Patient reports she does not remember either fall. He has no recollection of the time preceding the falls. Does not remember any prodromal symptoms. States that he feels fine now and has no chest pain, shortness of breath. Denies headache, neck pain, MSK pain, abdominal pain, nausea, vomiting, numbness, weakness, speech change, vision change. Additionally patient reports that he has been out of his psych medications for quite a few days including citalopram, BuSpar, risperidone. States he has also not been taking his glimepiride or metformin for the past couple of weeks. Related Data Home Medications Medication Instructions Recorded Confirmed citalopram 40 mg tablet 40 mg PO DAILY 04/26/20 07/05/23 cetirizine 10 mg capsule (Zyrtec) 10 mg PO DAILY 12/17/20 07/05/23 esomeprazole magnesium 20 mg 20 mg PO DAILY 12/17/20 07/05/23 capsule,delayed release (Nexium) trazodone 100 mg tablet 150 mg PO HS 12/17/20 07/05/23 buspirone 15 mg tablet 15 mg PO TID 10/02/21 07/05/23 hydroxyzine pamoate 50 mg capsule 50 mg PO TID 10/02/21 07/05/23 risperidone 1 mg tablet 1 mg PO TID 10/02/21 07/05/23 Allergies Allergy/AdvReac Type Severity Reaction Status Date / Time No Known Allergies Allergy Mild Verified 10/16/22 10:15 Review of Systems Review of Systems: All systems as dictated in [facility] Past Medical History Medical History Foot injury Hyperlipidemia Hypertension Mood disorder Type 2 diabetes mellitus Surgical History Surgical History No history of previous surgery Family History Family History Mother Family history of malignant neoplasm of breast in first degree relative Thyroid cancer Osteoarthritis Rheumatoid arthritis Father AIDS Social History Social History (Updated 10/16/22 @ 10:18 by Marbella Go CMA) Social History: The patient has 3 children. He lives with his who is the durable power claims attorney for healthcare. He is considered disabled. Patient continues to smoke 1 pack a cigarettes per day. He continues to drink socially. He denies any marijuana or illicit drugs. Code status full code Smoking packs per day: 1 Smoking cigarettes per day: 20.0 Years smoked: 40 Smoking pack-years: 40.00 Smoking status: Current every day smoker Tobacco type: cigarettes Alcohol intake: current Drinks per week: 5 Substance use: never Substance use type: does not use Lack of Transportation: No Lack of Food: Never True Current Housing: I Have Housing Concerned About Future Housing: No Difficulty Paying Gas/Electric Bills: No Difficulty Paying for Meds: No Curr
[2023-07-05 17:16] LABS: Basophils Absolute Auto 0.1 K/mm3 (0.0-0.1); Basophils Percent Auto 0.5 % (0.2-1.2); Eosinophils Absolute Auto 0.1 K/mm3 (0-0.3); Eosinophils Percent Auto 0.9 % (0-4.4); Hemoglobin 15.9 g/dL (14.0-18.0); Immature Granulocyte Absolute 0.07 K/mm3 (0.00-0.031); Immature Granulocyte Percent A 0.5 % (0-0.5); Lymphocytes Absolute Auto 1.23 K/mm3 (0.9-3.2); Lymphocytes Percent Auto 9.6 % (18.3-44.2); Mean Corpuscular HGB Conc 33.1 g/dl (32-36); Mean Corpuscular Hemoglobin 29.6 pg (26-34); Mean Corpuscular Volume 89.2 fl (80-100); Mean Platelet Volume 10.9 fl (7.4-10.4); Monocytes Absolute Auto 0.8 K/mm3 (0.1-0.6); Monocytes Percent Auto 6.5 % (2.6-8.5); Neutrophils Absolute Auto 10.5 K/mm3 (1.3-6.7); Platelet Count Result 204 k/mm3 (150-375); Red Blood Count 5.38 M/mm3 (4.6-6.20); Red Cell Distribution Width 15.6 % (11.5-14.5); White Blood Count 12.8 K/mm3 (4.5-10.0)
[2023-07-05 17:30] LABS: Alanine Aminotransferase 23 U/L (6-50); Albumin Level 4.2 g/dL (3.5-5.1); Alkaline Phosphatase 94 U/L (38-126); Anion Gap 12 mmol/L (8-16); Aspartate Amino Transferase 26 U/L (17-59); Bilirubin,Total 0.6 mg/dL (0.2-1.3); Blood Urea Nitrogen 14 mg/dL (9-20); Calcium 9.1 mg/dL (8.4-10.2); Carbon Dioxide 21 mmol/L (22-30); Chloride 102 mmol/L (98-107); Estimated CRCL calculation 73 ml/min; Estimated Glomerular Filt Rate > 60; Glucose 249 mg/dL (65-110); Potassium 3.5 mmol/L (3.4-5.0); Sodium 135 mmol/L (137-145)
[2023-07-05 17:43] LABS: Ethanol < 10 mg/dL (<10)
[2023-07-05 17:51] LABS: Magnesium 1.8 mg/dL (1.6-2.3); Phosphorus 3.2 mg/dL (2.5-4.5)
[2023-07-05 17:56] LABS: D Dimer 1.02 ug/mL (<0.48)
[2023-07-05 18:04] LABS: Troponin I < 0.012 ng/mL (0.000-0.034)
--- NOTE | 2023-07-05 18:30 | PC.NURSE ---
Pt given urinal and attempting to urinate
--- NOTE | 2023-07-05 19:10 | PC.NURSE ---
Report from MIGEL Crouch. Pt resting quietly per cart, denies any needs. VSS.
[2023-07-05 19:33] LABS: Appearance Urine Cloudy (Clear); Bacteria Urine None Seen /hpf; Bilirubin Urine Negative (Negative); Blood Urine Negative (Negative); Color Urine Dark Yellow (Yellow); Glucose Urine UA Negative (Negative); Ketones Urine Negative (Negative); Leukocyte Esterase Ur Negative LEU/UL (Negative); Need Manual Microscopic Reviewed; Nitrate Urine Negative (Negative); Protein Urine Trace mg/dL (Negative); Specific Grav Ur 1.052 (1.001-1.035); Squamous Epithelial Cell Urine None seen /hpf (Few); WBC Urine 0-5 /hpf; pH Urine 6.5 (5.0-9.0)
[2023-07-05 19:35] LABS: Add Urine Microscopic? YES
[2023-07-05 21:31] LABS: Troponin I < 0.012 ng/mL (0.000-0.034)
[2023-07-05] MEDS: SODIUM CHLORIDE 0.9% IV 1,000 ML 500 ML IV CONT (22:10)
--- NOTE | 2023-07-05 23:11 | PM.IMHP ---
H&P: HPI History of Present Illness Date/Time: 07/05/23 23:11 Chief Complaint: Passed out twice Narrative: 58-year-old male with past medical history of COPD, chronic tobacco use, bipolar disorder, type 2 diabetes mellitus, essential hypertension and medication noncompliance who presented to the ER from home after having 2 syncopal events. The patient reports that he was been out in the garage. He stood up and walked to the door to go back into the house. He stepped up to go inside the he became stiff and fell to the ground. She stated that it took about 3 minutes before he woke up. He and the cut on the back of his head. Just prior to passing out the patient states that he did sedate that is chest hurt. But he stated his chest pain was because he tripped and fell over something in his bedroom 2 days ago and landed on that area of his chest. The area of his chest hurts when he coughs. Otherwise the pain does not recur. He did not have any other prodromal symptoms. When he woke up he was not confused. He got up and walked back to the chair in the garage. He sat there for about 45 minutes and then decided to go back inside again. When he had just gotten side he he then had another episode of syncope. He had reported some lightheadedness to his before the 2nd episode. His was walking with him at that time and she was able to assist him down into a chair. He also reports that he has been out of his psychiatric medications for last 5 days as the pharmacy was out of supply of the medications. He thinks that some of his sensation of lightheadedness and not feeling right is due to missing his psychiatric medications. He does mention that he has been having some intermittent lightheadedness for the last several days. He has never had episodes of syncope and does not have a prior history of seizures. He did not have any loss of bowel or bladder control. He does not actually recall telling his that he had chest pain or recall telling her that he was dizzy prior to passing out. He he only tells me this information because his told him and the ER provider when he arrived to the hospital. The patient does report a distant history of being told that he had a frontal lobe stroke about 15 years ago. He has mild atrophy and chronic white matter changes consistent with atherosclerotic intracranial calcifications noted on CT but no acute process. Orthostatic vital signs performed in the ER were positive for change in systolic blood pressure when going from supine to sitting. Patient does report feeling thirsty. His glucoses were noted to be high in the ER the 250. The patient was drinking regular soda when I arrived at his bedside. The patient states that he was tired of taking handful of medications when he could just dropped his blood sugars by changing his diet and exercising. He thusly has not been taking his oral hypoglycemic agents or his antihypertensives. He reports that his glucoses have been ?okay at home despite not taking his medications. He stated that he was frustrated with taking the medications whenever he should be able to fix this problem on his own. He has been out of his citalopram, BusPar and risperidone. In the ER his EKG did not demonstrate minimal QT prolongation at 483. Again he has been out of his medications that would actually illicit her worsened usual QT prolongation. Patient has not had any witnessed ectopy or arrhythmias on telemetry since admission. Review of Systems Review of Systems: 12 systems were reviewed with pertinent positives and negatives per HPI. Except as documented in the HPI, all other systems were reviewed and are negative. He reports symptoms of intermittent numbness and tingling in his feet. He has never been officially diagnosed with neuropathy. [facility], [facility] Past Medical History Medical History (Updated 07/06/23 @ 06:27 by Giulia Alexander DO) Anxiety and depression Bilateral hydr
--- NOTE | 2023-07-05 23:42 | ADMGEN ---
This patient, Shai Hernandez, was admitted to Medical Room 340-01. Patient/family oriented to hospital policies and general routines including ID bracelet, bed and alarms, visiting hours, pain management, procedures, bathroom and other care routines, personal items, smoking policy, room service/diet, and visiting hours. Information on how to activate the Rapid Response Team has been discussed. Patient/Family are encouraged to report perceived risks to care and to ask questions if they do not understand what they are told or what they should do.
[2023-07-06] VITALS (12 sets, daily range): BP systolic 141–160; BP diastolic 62–90; PULSE 61–90; RESP 18; TEMP 36.3–36.9; O2SAT 94–97
[2023-07-06] MEDS: SODIUM CHLORIDE 0.9% IV 1,000 ML 125 ML IV CONT ×3 (00:29→16:07)
[2023-07-06] MEDS: hydrOXYzine pamoate 25 MG CAPSULE 50 MG PO ×4 (01:09→17:28)
[2023-07-06] MEDS: traZODone HCL 50 MG TABLET 150 MG PO ×2 (01:09→22:13)
[2023-07-06] MEDS: risperiDONE 1 MG TABLET PO ×4 (01:09→17:29)
[2023-07-06] MEDS: busPIRone HCL 5 MG TABLET 15 MG PO ×4 (01:09→17:28)
--- NOTE | 2023-07-06 05:56 | ECG_ITS ---
Measurements Intervals [place] Rate: 67 P: 37 RI: 196 QRS: 0 QRSD: 88 T: 35 QT: 416 QTc: 440 Interpretive Statements SINUS RHYTHM NORMAL ECG COMPARED TO ECG 07/05/2023 16:58:42 NO SIGNIFICANT CHANGES Electronically Signed On 07-06-2023 8:52:07 CDT by Marques Courtney M.D.
[2023-07-06 06:42] LABS: Hematocrit 41.1 % (42.0-52.0); Hemoglobin 13.7 g/dL (14.0-18.0); Mean Corpuscular HGB Conc 33.3 g/dl (32-36); Mean Corpuscular Hemoglobin 29.8 pg (26-34); Mean Corpuscular Volume 89.5 fl (80-100); Mean Platelet Volume 10.7 fl (7.4-10.4); Platelet Count Result 171 k/mm3 (150-375); Red Blood Count 4.59 M/mm3 (4.6-6.20); Red Cell Distribution Width 15.2 % (11.5-14.5); White Blood Count 8.7 K/mm3 (4.5-10.0)
[2023-07-06 06:52] LABS: Anion Gap 6 mmol/L (8-16); Blood Urea Nitrogen 9 mg/dL (9-20); Calcium 8.8 mg/dL (8.4-10.2); Carbon Dioxide 21 mmol/L (22-30); Chloride 109 mmol/L (98-107); Estimated CRCL calculation 102 ml/min; Estimated Glomerular Filt Rate > 60; Glucose 147 mg/dL (65-110); Potassium 3.4 mmol/L (3.4-5.0); Sodium 136 mmol/L (137-145)
[2023-07-06 08:39] LABS: Glucose Point of Care 130 mg/dl (65-105)
[2023-07-06] MEDS: ENOXAPARIN 40 MG/0.4 ML SYRINGE SUB-Q (09:11)
[2023-07-06] MEDS: LORATADINE 10 MG TABLET PO (09:12)
[2023-07-06] MEDS: LOSARTAN POTASSIUM 100 MG TABLET PO (09:12)
[2023-07-06] MEDS: ATORVASTATIN 40 MG TABLET PO (09:12)
[2023-07-06] MEDS: metFORMIN HCL XR 500 MG TAB.SR.24H 1000 MG PO ×2 (09:12→17:29)
[2023-07-06] MEDS: GLIMEPIRIDE 2 MG TABLET PO (09:12)
[2023-07-06] MEDS: PANTOPRAZOLE 40 MG TABLET PO (09:12)
[2023-07-06] MEDS: METOPROLOL SUCCINATE EXT REL 100 MG TABCR PO (09:13)
[2023-07-06 12:07] LABS: Glucose Point of Care 112 mg/dl (65-105)
--- NOTE | 2023-07-06 12:07 | PM.IMPN ---
Progress Note: A&P Assessment and Plan (1) Syncope and collapse: Code(s): R55 - Syncope and collapse Status: Acute Assessment and Plan: Neurology has been consulted given patient's symptoms. EEG and MRI ordered, MRI not able to be done due to cristiane in the patient's head will await neuro recommendations on 07/07 patient is on telemetry may benefit from Holter monitor outpatient if neuro work up is negative (2) Orthostatic hypotension: Code(s): I95.1 - Orthostatic hypotension Status: Acute Assessment and Plan: Orthostatics done 07/06/23 am does not meet criteria for orthostatic hypotension on fall precautions (3) QT prolongation: Code(s): R94.31 - Abnormal electrocardiogram [ECG] [EKG] Status: Acute Assessment and Plan: repeat EKG 07/06/23 showed no changes from 07/05/23 EKG and in SR will continue to monitor and hold Celexa for now (4) Primary hypertension: Code(s): I10 - Essential (primary) hypertension Status: Acute Assessment and Plan: continue home medications (5) Bipolar disorder: Qualifiers: Active/Remission status: remission status unspecified Qualified Code(s): F31.9 - Bipolar disorder, unspecified Code(s): F31.9 - Bipolar disorder, unspecified Status: Acute Assessment and Plan: continue home medications hold Celexa for now as he is on multiple QT prolonging medications (6) Type 2 diabetes mellitus with hyperglycemia, without long-term current use of insulin: Code(s): E11.65 - Type 2 diabetes mellitus with hyperglycemia Status: Acute Assessment and Plan: had diabetes that has been controlled in the past with an A1c of 6 last year. comes in with diabetes with hyperglycemia Will resume the patient's home oral hypoglycemic agents and will add sliding scale insulin with Accu-Cheks a.c. HS and hypoglycemia protocol. (7) Nonadherence to medication: Code(s): Z91.148 - Patient's other noncompliance with medication regimen for other reason Status: Acute Assessment and Plan: Discussions at length regarding importance of compliance with medications as directed he does have a primary that he follows with and that manages his diabetes Subjective Date/time seen: 07/06/23 12:07 Interval history: 58 YO male with past medical history of COPD, chronic tobacco use, bipolar disorder, type 2 diabetes mellitus, essential hypertension and medication noncompliance admitted from the ER from home after having 2 syncopal events.? The patient reports that he was been out in the garage.? He stood up and walked to the door to go back into the house.? He stepped up to go inside the he became stiff and fell to the ground.? She stated that it took about 3 minutes before he woke up.? He and the cut on the back of his head which is now stapled with 3 cristiane. He did not have any prodromal symptoms other than some chest pain that was present prior.?He had reported some lightheadedness to his before the 2nd episode of syncope.he has been out of his psychiatric medications for last 5 days as the pharmacy was out of supply of the medications which he restarted all at once the day of the episode. He thinks that some of his sensation of lightheadedness and not feeling right is due to missing his psychiatric medications.?He denies previous episodes of syncope or seizures seizures.? This morning he is sitting up at the bedside, eating his breakfast. His BS have been ranging in the 100-200's at home per patient, but he has not been taking his oral meds. He states he will start again after speaking with the doctor. He has no complaints this morning. The cristiane in his head look clean and intact, no bruising or swelling. He is talking in full sentences. Review of Systems Review of Systems: 12 systems were reviewed with pertinent positives and negatives per HPI. Except as documented in the HP
[2023-07-06] MEDS: NICOTINE (*PBKC) 21 MG PATCH 1 PATCH TRANSDERM (16:06)
[2023-07-06 16:56] LABS: Glucose Point of Care 126 mg/dl (65-105)
[2023-07-06 22:19] LABS: Glucose Point of Care 106 mg/dl (65-105)
[2023-07-07] VITALS: PULSE 66
[2023-07-07] MEDS: SODIUM CHLORIDE 0.9% IV 1,000 ML 125 ML IV CONT ×2 (03:47→08:46)
[2023-07-07 04:00] VITALS: PULSE 71
[2023-07-07 06:00] VITALS: BP 171/89; PULSE 70; RESP 20; TEMP 36.9; O2SAT 99
[2023-07-07 08:00] VITALS: PULSE 63
[2023-07-07 08:03] LABS: Glucose Point of Care 109 mg/dl (65-105)
[2023-07-07] MEDS: GLIMEPIRIDE 2 MG TABLET PO (08:47)
[2023-07-07] MEDS: ATORVASTATIN 40 MG TABLET PO (08:47)
[2023-07-07] MEDS: PANTOPRAZOLE 40 MG TABLET PO (08:47)
[2023-07-07] MEDS: LOSARTAN POTASSIUM 100 MG TABLET PO (08:47)
[2023-07-07] MEDS: metFORMIN HCL XR 500 MG TAB.SR.24H 1000 MG PO (08:47)
[2023-07-07 08:48] VITALS: PULSE 73
[2023-07-07] MEDS: LORATADINE 10 MG TABLET PO (08:48)
[2023-07-07] MEDS: busPIRone HCL 5 MG TABLET 15 MG PO ×2 (08:48→13:29)
[2023-07-07] MEDS: hydrOXYzine pamoate 25 MG CAPSULE 50 MG PO ×2 (08:48→13:29)
[2023-07-07] MEDS: METOPROLOL SUCCINATE EXT REL 100 MG TABCR PO (08:48)
[2023-07-07] MEDS: risperiDONE 1 MG TABLET PO ×2 (08:48→13:29)
[2023-07-07] MEDS: ENOXAPARIN 40 MG/0.4 ML SYRINGE SUB-Q (08:49)
[2023-07-07] MEDS: NICOTINE (*PBKC) 21 MG PATCH 1 PATCH TRANSDERM (08:53)
--- NOTE | 2023-07-07 09:58 | WPDNEUROLOGY ---
Neurology EEG Report General Information Date of Study: 07/06/23 TEST eeg DIAGNOSIS Possible seizures CONDITION OF RECORDING awake drowsy and sleep EEG NUMBER [id number] CLINICAL HISTORY patient reported he got lightheaded and lost consciousness day before EEG EEG DESCRIPTION basic resting occipital frequency consists of low-voltage 8 to 10 hertz per 2nd alpha admixed with low-voltage 15 to 18 hertz per 2nd beta. Low-voltage beta activity seen diffusely during drowsiness admixed with waxing and waning posterior alpha rhythm. Hyperventilation not done. Photic stimulation not done. Non paroxysmal. Nonfocal. Nonlateralizing. IMPRESSION No significant abnormalities noted.
[2023-07-07 12:00] VITALS: PULSE 72
--- NOTE | 2023-07-07 12:21 | WPDNEURCNPN ---
Assessment and Plan Assessment and plan (1) Orthostatic hypotension: Code(s): I95.1 - Orthostatic hypotension Status: Acute (2) Syncope and collapse: Code(s): R55 - Syncope and collapse Status: Acute Plan vasovagal syncope with negative CT scan of the head normal EEG but underlying multiple medical problems as outlined he is already receiving multiple medications including trazodone, risperidone, BuSpar, no other medication will be added will need a followup thank Consult date: 07/07/23 HPI: Shai Hernandez is a 58 year old male Admitted to the hospital through the emergency room with ongoing history of 1. Diabetes mellitus type 2 2. Hyperlipidemia 3. Hypertension 4. Complaint of possible seizure and 5. Mood disorder reportedly came from the garage is stating that the side of the chest was hurting and many stood up his eyes rolled back and his whole body stiffened up fell to the ground like a log he sustained a laceration to the head though he was able to get up himself and walker on following the event but about 45 minutes later while walking he was noted to his stiffening up and complained of being dizzy though no generalized tonic-clonic activity was noted. His medications included citalopram 40 mg daily trazodone 150 mg at night BuSpar 15 mg 3 times a day hydroxyzine 50 mg 3 times a day and risperidone 1 mg 3 times a day he is not allergic to any medication he does have a history of 40 years smoked 40 smoking pack years currently everyday smoker and also currently alcohol intake for at least 5 drinks per week initial exam in the emergency room was grossly nonfocal vital signs were normal with blood pressure 154/74 but he was afebrile his EKG was without atrial fibrillation but prolonged QT interval only slightly he was noted to have elevated blood sugar and CMP. Chest CTA is negative for emboli, cervical spine CT scan negative for fracture dislocation, head CT scan negative for the bleed an EEG on 07/06 is normal [facility] Past Medical History Medical History (Updated 07/06/23 @ 06:27 by Giulia Alexander DO) Anxiety and depression Bilateral hydrocele Bipolar disorder Diabetic peripheral neuropathy Hyperlipidemia Hypertension Steatosis of liver Type 2 diabetes mellitus Ventral hernia without obstruction or gangrene Surgical History Surgical History No history of previous surgery Family History Family History Mother Family history of malignant neoplasm of breast in first degree relative Thyroid cancer Osteoarthritis Rheumatoid arthritis Father AIDS Social History Social History (Updated 07/06/23 @ 03:13 by Giulia Alexander DO) Social History: Patient is and lives with his of approximately 30 years. They have 3 children the youngest there youngest child is 16. Patient has smoked since he was 11 years old. He has smoked as much as a pack of cigarettes per day. He has been on disability due to psychiatric illness since approximately 2004. He had drinks a handle of hard liquor a month. He reports he usually drinks that handle in 1 week and then does not drink for the rest of the month. Code status: Full code (however, he would not want tracheostomy or long-term feeding tube.) Surrogate decision maker: Smoking packs per day: 1 Smoking cigarettes per day: 20.0 Years smoked: 47 Smoking pack-years: 47.00 Smoking status: Current every day smoker Tobacco type: cigarettes Alcohol intake: current Drinks per week: 5 Substance use: never Substance use type: does not use Lack of Transportation: No Lack of Food: Never True Current Housing: I Have Housing Concerned About Future Housing: No Difficulty Paying Gas/Electric Bills: No Difficulty Paying for Meds: No Currently Unemployed: No Education: High School Diploma/GED Difficulty
[2023-07-07 12:51] LABS: Glucose Point of Care 75 mg/dl (65-105)
--- NOTE | 2023-07-07 14:33 | PM.DS ---
DS: Admitting Diagnosis Discharge Date 07/07/23 Admitting Diagnosis syncope DS: Discharge Diagnosis Discharge Diagnosis (1) Syncope and collapse: Code(s): R55 - Syncope and collapse Status: Acute Assessment and Plan: Neurology has been consulted given patient's symptoms, cleared for discharge with no further work up in patient EEG WNL MRI ordered, MRI not able to be done due to cristiane in the patient's head may benefit from Holter monitor outpatient if symptoms resume (2) Orthostatic hypotension: Code(s): I95.1 - Orthostatic hypotension Status: Acute Assessment and Plan: Orthostatics done 07/06/23 am does not meet criteria for orthostatic hypotension (3) QT prolongation: Code(s): R94.31 - Abnormal electrocardiogram [ECG] [EKG] Status: Acute Assessment and Plan: repeat EKG 07/06/23 showed no changes from 07/05/23 EKG and in SR (4) Primary hypertension: Code(s): I10 - Essential (primary) hypertension Status: Acute Assessment and Plan: continue home medications (5) Bipolar disorder: Qualifiers: Active/Remission status: remission status unspecified Qualified Code(s): F31.9 - Bipolar disorder, unspecified Code(s): F31.9 - Bipolar disorder, unspecified Status: Acute Assessment and Plan: continue home medications (6) Type 2 diabetes mellitus with hyperglycemia, without long-term current use of insulin: Code(s): E11.65 - Type 2 diabetes mellitus with hyperglycemia Status: Acute Assessment and Plan: had diabetes that has been controlled in the past with an A1c of 6 last year. comes in with diabetes with hyperglycemia Will resume the patient's home oral hypoglycemic agents (7) Nonadherence to medication: Code(s): Z91.148 - Patient's other noncompliance with medication regimen for other reason Status: Acute Assessment and Plan: Discussions at length regarding importance of compliance with medications as directed he does have a primary that he follows with and that manages his diabetes DS: Summary Hospital Course Hospital Course: 58 YO male with past medical history of COPD, chronic tobacco use, bipolar disorder, type 2 diabetes mellitus, essential hypertension and medication noncompliance admitted from the ER from home after having 2 syncopal events. The patient reports that he was been out in the garage. He stood up and walked to the door to go back into the house. He stepped up to go inside the he became stiff and fell to the ground. She stated that it took about 3 minutes before he woke up. He and the cut on the back of his head which is now stapled with 3 cristiane. He did not have any prodromal symptoms other than some chest pain that was present prior. He had reported some lightheadedness to his before the 2nd episode of syncope. He has been out of his psychiatric medications for last 5 days as the pharmacy was out of supply of the medications which he restarted all at once the day of the episode. He thinks that some of his sensation of lightheadedness and not feeling right is due to missing his psychiatric medications. He denies previous episodes of syncope or seizures seizures. This morning he is sitting up at the bedside, eating his breakfast with no complaints. BS have been managed well inpatient. Patient has nicotine patch on and feels it helps. Neuro work up was negative, EEG was normal. MRI unable to be completed. Recommeded caution with psychiatric medications. Stable to d/c home today with his . Time spent discussing smoking cessation with patient: 3 to 10 minutes Status at Discharge Functional status at discharge: independent ambulation Overall status at discharge: patient is back to baseline Time Spent with Patient Time attestation: Total time spent providing and/or coordinating discharge services: Exam Narrative: Weight 90.7 kg BMI 28.7
[2023-07-09 14:26] LABS: Prolactin 9.4 ng/mL (***)
== END 2023-07-07 15:00 | disposition home or self-care (01) | DRG 918 ==
LOC: ANHED 21:55 → ANH3MED 22:51
PROVIDERS: Emergency Medicine; Admitting Provider Internal Medicine; Emergency Provider Physician Assistant; PCP Family Medicine; Visit Provider Nurse Practitioner
DX: T43.591A Poisoning by other antipsychotics and neuroleptics, accidental (unintentional), initial encounter (principal); T43.221A Poisoning by selective serotonin reuptake inhibitors, accidental (unintentional), initial encounter; T43.211A Poisoning by selective serotonin and norepinephrine reuptake inhibitors, accidental (unintentional), initial encounter; R55 Syncope and collapse; I10 Essential (primary) hypertension; J44.9 Chronic obstructive pulmonary disease, unspecified; E11.42 Type 2 diabetes mellitus with diabetic polyneuropathy; E78.5 Hyperlipidemia, unspecified; K76.0 Fatty (change of) liver, not elsewhere classified; R94.31 Abnormal electrocardiogram [ECG] [EKG]; F31.9 Bipolar disorder, unspecified; F41.9 Anxiety disorder, unspecified; F39 Unspecified mood [affective] disorder; F17.210 Nicotine dependence, cigarettes, uncomplicated; Z91.148 Patient's other noncompliance with medication regimen for other reason
CPT/HCPCS: 36415; 70450; 71275; 72125; 80048; 80053; 80307; 81001; 82948; 83735; 84100; 84146; 84484; 85025; 85027; 85380; 93005; 95816; 96360; 96361; 96372; 99285; A9270; G0378; J1650; J7030; Q9967